=== PATIENT | female | born 1935 | race Caucasian/White ===

== ENCOUNTER 2018-08-03 00:29 | Inpatient (IN) | payer MEDICARE ==
[~2018-08-03] VITALS: Ht 165.1 cm; Wt 68.0 kg
[2018-08-03] VITALS (14 sets, daily range): BP systolic 114–159; BP diastolic 46–78
--- NOTE | 2018-08-03 00:45 | NUR ---
ED Nurse Note: RECIEVED PT BIBA FROM HOME WITH C/O UN-WITNESSED SYNCOPAL EPISODE WHILE USING BATHROOM, PT HAS HAD BLOODY DIARRHEA FOR PAST 2 DAYS, PT ALSO C/O FEELING WEAK, PT SKIN IS VERY PALE AND WHITE COLORED, ALSO MUCOUS MEMBRANES AND TONGUE VERY PLE COLORED, PT SKIN IS COOL AND PT IS TREMBLING WITH CHILLS, PT IMMEDIATELY PLACED ON CARDIAC MONITORING, HAS PATENT IV LINE, WILL RESUME CARE ORDERED AND CLOSELY MONITOR.
[2018-08-03 01:11] LABS: MEAN CORPUSCULAR VOLUME 86 FL (80-99); PLATELET COUNT 211 K/UL (150-450); RED BLOOD COUNT 2.44 M/UL (4.20-5.40); RED CELL DISTRIBUTION WIDTH 14.2 % (11.6-14.8); WHITE BLOOD COUNT 9.3 K/UL (4.8-10.8)
[2018-08-03 01:17] LABS: HEMOGLOBIN 6.9 G/DL (12.0-16.0)
[2018-08-03 01:22] LABS: ANION GAP 8 mmol/L (5-15); BLOOD UREA NITROGEN 30 mg/dL (7-18); CARBON DIOXIDE 22 MMOL/L (21-32); CHLORIDE 108 MMOL/L (98-107); CREATININE 1.3 MG/DL (0.55-1.30); POTASSIUM 4.5 MMOL/L (3.5-5.1); SODIUM 138 MMOL/L (136-145)
[2018-08-03 01:27] LABS: ALANINE AMINOTRANSFERASE 16 U/L (12-78); ALBUMIN 2.7 G/DL (3.4-5.0); ALBUMIN/GLOBULIN RATIO 1.1 (1.0-2.7); ALKALINE PHOSPHATASE 28 U/L (46-116); ASPARTATE AMINO TRANSFERASE 23 U/L (15-37); BILIRUBIN,TOTAL 0.2 MG/DL (0.2-1.0)
[2018-08-03 01:39] LABS: INR 1.1 (0.9-1.1)
--- NOTE | 2018-08-03 02:00 | NUR ---
ED Nurse Note: PT CONTINUES TO REST IN BED, AWAKE AND ALERT, PT CHANGED FOR INCONTINENCE, VERY SMALL AMOUNT OF BLOOD NOTED FROM RECTUM, PT DENIES PAIN, V/S STABLE, IV SITE PATENT, PT IS BEING ADMITTED AND WILL HAVE BLOOD TRANSFUSION, PT IS AWARE, ALSO FAMILY AT BEDSIDE, CONSENT SIGNED, WILL CONTINUE TO MONITOR AND PREPARE FOR ADMISSION.
--- NOTE | 2018-08-03 03:05 | NUR ---
ED Nurse Note: PT STARTED BLOOD TRNSFUSION OF PRBC'S ORDERED,NEW IV LINE PLACED ON RIGHT C, STATES OK TO USE EXTREMITY, STAYED AT PT BEDSIDE FIRST 15 MINUTES, PT TOLERTED WELL, NO S/S OF ADVERSE REACTION NOTED, PT CONTINUES TO DENY PAIN, V/S STABLE, WILL CONTINUE TO CLOSELY MONITOR AND PREPARE FOR ADMISSION TO FLOOR BED.
--- NOTE | 2018-08-03 03:45 | NUR ---
ED Nurse Note: PT BEING ADMITTED TO FLOOR UNIT, PT IS IN BED AWAKE, ALERT AND ORIENTED X 4, PT DENIES PAIN, BLOOD TRANSFUSION INFUSING ORDERED, SITE OK AND NO S/S F ADVERSE REACTION NOTED, REPORT CALLED TO FLOOR NURSE MONIQUE ROME, PT BEING TAKEN TO UNIT VIA GULAZARA AND ACLS PROTOCOLS WITH ER-TECH, PT BELONGINGS WITH HER AND LIST COMPLETED, NAD NOTED DURING PT TRANSPORT TO UNIT.
--- NOTE | 2018-08-03 04:09 | Emergency Room Report ---
History of Present Illness General Chief Complaint: Syncope Source: Patient Present Illness HPI 83-year-old female presents ED for evaluation. Brought in by EMS from home. Had syncopal episode tonight. Patient was on the toilet and there was large amount of blood witnessed by family. Per EMS patient is hypotensive. Patient feels weak. Denies any prior episodes of rectal bleeding. Is not taking any blood thinners. Denies abdominal pain. Denies nausea or vomiting. No other aggravating relieving factors. Denies any other associated symptoms Allergies: Coded Allergies: No Known Allergies (Unverified , 08/03/18) Patient History Past Medical History: DM, HTN, other - breast cancer Past Surgical History: none Pertinent Family History: none Social History: Denies: smoking, alcohol use, drug use Now: No Immunizations: UTD Reviewed Nursing Documentation: PMH: Agreed; PSxH: Agreed Nursing Documentation-PMH Hx Hypertension: Yes Hx Diabetes: Yes Hx Gastrointestinal Problems: Yes - R Breast cancer Review of Systems All Other Systems: negative except mentioned in HPI Physical Exam Vital Signs Date Time Temp Pulse Resp B/P (MAP) Pulse Ox O2 Delivery O2 Flow Rate FiO2 08/03/18 00:30 98.1 57 16 79/31 (47) 95 Room Air Sp02 EP Interpretation: reviewed, normal General Appearance: no apparent distress, alert, GCS 15, non-toxic Head: normocephalic, atraumatic Eyes: bilateral eye normal inspection, bilateral eye PERRL ENT: hearing grossly normal, normal pharynx, no angioedema, normal voice Neck: full range of motion, supple/symm/no masses Respiratory: chest non-tender, lungs clear, normal breath sounds, speaking full sentences Cardiovascular #1: regular rate, rhythm, no edema Cardiovascular #2: 2+ carotid (R), 2+ carotid (L), 2+ radial (R), 2+ radial (L) , 2+ dorsalis pedis (R), 2+ dorsalis pedis (L) Gastrointestinal: normal bowel sounds, non tender, soft, non-distended, no guarding, no rebound Rectal: heme positive stool Genitourinary: normal inspection, no CVA tenderness Musculoskeletal: back normal, gait/station normal, normal range of motion, non- tender Neurologic: alert, oriented x3, responsive, motor strength/tone normal, sensory intact, speech normal Psychiatric: judgement/insight normal, memory normal, mood/affect normal, no suicidal/homicidal ideation Reflexes: 3+ bicep (R), 3+ bicep (L), 3+ tricep (R), 3+ tricep (L), 3+ knee (R) , 3+ knee (L) Skin: normal color, no rash, warm/dry, well hydrated Lymphatic: no adenopathy Procedures Critical Care Time Critical Care Time i. I feel this is a highly complex case requiring extensive working including EKG/Rhythm strip, Xray/CT/US, Blood/urine lab work, repeat exams while in ED, and administration of strong opiates/narcotics for pain control, admission to hospital or close patient follow up. Total time: 30 min bedside evaluation and treatment excludes procedures (EKG). Reason for critical care: hypotension, anemia, GI bleed Possible complications: hypotension, hypertension, AL, shock, arrhythmias, metabolic acidosis, end organ damage, respiratory failure. Interventions: labs, IVFS, EKG. PRBC transfusion. Course: presenting with hypotension, lower GI bleed. Labs show hemoglobin 6.9. Troponin is negative. Coags okay. BP improved with IV fluids. Blood transfusion started Consultations: nursing staff, EMS, family Performed by: Dr Johnson Tolerated well condition = serious j. because of unstable vital signs this patient had a condition that could potentially threaten life or limb. I feel this is a critical patient who required my full attention while patient was considered critical. Total Critical Care Time excluding procedures was greater than 30 minutes Medical Decision Making Diagnostic Impression: Primary Impression: Syncope Qualified Codes: R55 - Syncope and collapse Additional Impressions: LGI bleed Anemia Qualified Codes: D64.9 - Anemia, unspecified ER Course Hospital Course 83-year-old F presents to ED with rectal bleeding. hypotension Differential diagnoses include: UGIB, LGIB, hemorrhoids Clinical course Patient placed on stretcher. 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 After initial history and physical I ordered labs, IV fluids, UA Labs - no leukocytosis, Hb/Hct 6.9/21. BUN elevated. trop negative. EKG - NSR, no acute ischemic changes interpreted by me Improved with IV fluids. Blood transfusion started Case discussed with Dr. Shahid and he agreed to accept the patient to his service for further care and support I feel this is a highly complex case requiring extensive working including EKG/ Rhythm strip, Xray/CT/US, Blood/urine lab work, repeat exams while in ED, and administration of strong opiates/narcotics for pain control, admission to hospital or close patient follow up. Diagnosis - LGIB, syncope, anemia Patient admitted to telemetry in serious condition Labs Test 08/03/18 00:45 White Blood Count 9.3 K/UL (4.8-10.8) Red Blood Count 2.44 M/UL (4.20-5.40) Hemoglobin 6.9 G/DL (12.0-16.0) Hematocrit 21.0 % (37.0-47.0) Mean Corpuscular Volume 86 FL (80-99) Mean Corpuscular Hemoglobin 28.4 PG (27.0-31.0) Mean Corpuscular Hemoglobin Concent 33.0 G/DL (32.0-36.0) Red Cell Distribution Width 14.2 % (11.6-14.8) Platelet Count 211 K/UL (150-450) Mean Platelet Volume 5.6 FL (6.5-10.1) Neutrophils (%) (Auto) % (45.0-75.0) Lymphocytes (%) (Auto) % (20.0-45.0) Monocytes (%) (Auto) % (1.0-10.0) Eosinophils (%) (Auto) % (0.0-3.0) Basophils (%) (Auto) % (0.0-2.0) Prothrombin Time 11.3 SEC (9.30-11.50) Prothromb Time International Ratio 1.1 (0.9-1.1) Activated Partial Thromboplast Time 22 SEC (23-33) Sodium Level 138 MMOL/L (136-145) Potassium Level 4.5 MMOL/L (3.5-5.1) Chloride Level 108 MMOL/L (98-107) Carbon Dioxide Level 22 MMOL/L (21-32) Anion Gap 8 mmol/L (5-15) Blood Urea Nitrogen 30 mg/dL (7-18) Creatinine 1.3 MG/DL (0.55-1.30) Estimat Glomerular Filtration Rate mL/min (>60) Glucose Level 237 MG/DL (74-106) Calcium Level 8.0 MG/DL (8.5-10.1) Total Bilirubin 0.2 MG/DL (0.2-1.0) Aspartate Amino Transf (AST/SGOT) 23 U/L (15-37) Alanine Aminotransferase (ALT/SGPT) 16 U/L (12-78) Alkaline Phosphatase 28 U/L (46-116) Troponin I 0.026 ng/mL (0.000-0.056) Total Protein 5.2 G/DL (6.4-8.2) Albumin 2.7 G/DL (3.4-5.0) Globulin 2.5 g/dL Albumin/Globulin Ratio 1.1 (1.0-2.7) Lipase 175 U/L (73-393) EKG Diagnostic Results Rate: normal Rhythm: NSR ST Segments: no acute changes ASA given to the pt in ED: No Rhythm Strip Diag. Results EP Interpretation: yes Rhythm: NSR, no PVC's, no ectopy Last Vital Signs Date Time Temp Pulse Resp B/P (MAP) Pulse Ox O2 Delivery O2 Flow Rate FiO2 08/03/18 01:15 98.1 69 16 115/78 98 Room Air Status: improved Disposition: ADMITTED INPATIENT Condition: Serious Referrals: NON PHYSICIAN (PCP) Gaudencio Johnson MD Aug 03, 2018 04:09
--- NOTE | 2018-08-03 04:30 | NUR ---
BEDSIDE REPORT RECEIVED FROM MONIQUE STOVALL. TRIM SAWYER SHOWING NSDR. X4 ABLE TO MAKE NEEDS KNOWN. SKIN IS CLEAN DRY AND INTACT. CURRENTLY RECEIVING 1 OF 2 UNITS OF PRBCS. LH 22 AND RAC 18, ASYMPTOMATIC. BED IS LOCKED IN LOWEST POSITION, SR X3, CALL PINEDA X3, BED ALARM ON. WILL CONTINUE TO MONITOR AND FOLLOW W/ PLAN OF CARE.
--- NOTE | 2018-08-03 07:05 | NUR ---
NURSE NOTES: RECEIVED REPORT FROM MONIQUE ROME. PATIENT IS ON ROOM AIR BREATHING EVEN AND UNLABORED. 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 PATIENT IS AAO X4 AND ABLE TO MAKE NEEDS KNOWN. SKIN IS CLEAN DRY AND INTACT. CURRENTLY RECEIVING 2 OUT OFF 2 UNITS OF PRBCS. LH 22 AND RAC 18, ASYMPTOMATIC. BED IS LOCKED IN LOWEST POSITION, SR X3, CALL PINEDA X3, BED ALARM ON. WILL CONTINUE TO MONITOR AND FOLLOW W/ PLAN OF CARE.
--- NOTE | 2018-08-03 07:11 | NUR ---
HAND-OFF: Report given to MONIQUE MANNING.
--- NOTE | 2018-08-03 08:34 | NUR ---
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 SYNCOPE VS: BP 79/31, P 57, T 98.0, RR 16, SpO2 95 RBC 2.44, H&H 6.9/21.0, BUN 30 IS:NS x1L IV ADMITTED TO ARU DCP: RETURN HOME
--- NOTE | 2018-08-03 08:40 | NUR ---
NURSE NOTES: Second blood transfusion is completed. Patient denies pain and is no distress.
[2018-08-03] MEDS ORDERED: Morphine Sulfate 2mg/ml Inj(IV/IM USE ONLY) IVP PRN (09:15)
[2018-08-03] MEDS ORDERED: Nitroglycerin Subl 0.4mg tab SL PRN (09:15)
[2018-08-03] MEDS ORDERED: Miralax 17gm pkt ORAL PRN (09:15)
[2018-08-03] MEDS: D5NS 1,000 ML IV SCH ×2 (10:02→19:05)
[2018-08-03] MEDS ORDERED: Fleet's Enema 133ml RECTAL SCH (10:06)
--- NOTE | 2018-08-03 11:34 | Consultation ---
History of Present Illness General Date patient seen: Aug 03, 2018 Chief Complaint: Syncope Present Illness HPI 83-year-old female with hx of early Dementia, breast cancer 5 years ago, presented ED early this morning for evaluation of syncopal episode. Patient was on the toilet and there was large amount of blood witnessed by family. Per EMS patient was hypotensive. Patient feels weak. Denies any prior episodes of rectal bleeding. Is not taking any blood thinners. Denies abdominal pain. Denies nausea or vomiting. No other aggravating relieving factors. Denies any other associated symptoms. Her hemoglobin was 6. She is admitted to [facility] for further management. She is awake and comfortable now. Pt's son at the bed site stating that she has been forgetful in the last few years. Allergies: Coded Allergies: No Known Allergies (Unverified , 08/03/18) Patient History Healthcare decision maker SELF Resuscitation status Full Code Advanced Directive on File No Past Medical/Surgical History Past Medical/Surgical History: (1) Breast cancer Review of Systems All Other Systems: negative except mentioned in HPI Physical Exam General Appearance: WD/WN Lines, tubes and drains: peripheral HEENT: normocephalic, anicteric Neck: non-tender, normal alignment Respiratory/Chest: chest wall non-tender, lungs clear, normal breath sounds Breasts: no masses Cardiovascular/Chest: normal peripheral pulses Abdomen: normal bowel sounds Genitourinary/Rectal: normal genital exam Extremities: normal range of motion Last 24 Hour Vital Signs Date Time Temp Pulse Resp B/P (MAP) Pulse Ox O2 Delivery O2 Flow Rate FiO2 08/03/18 09:58 65 131/55 08/03/18 08:40 97.7 64 20 143/60 (87) 98 08/03/18 08:00 98.3 65 18 131/55 (80) 98 08/03/18 08:00 Room Air 08/03/18 05:49 98.4 14 128/56 99 Room Air 08/03/18 04:59 Room Air 08/03/18 04:37 61 08/03/18 04:00 98.4 67 14 128/56 99 Room Air 08/03/18 04:00 97.8 66 20 138/77 (97) 97 08/03/18 03:00 98.4 67 16 114/58 98 Room Air 08/03/18 01:15 98.1 69 16 115/78 98 Room Air 08/03/18 00:45 98.1 70 16 114/46 97 Room Air 08/03/18 00:30 98.1 57 16 79/31 (47) 95 Room Air Laboratory Tests Test 08/03/18 00:45 White Blood Count 9.3 K/UL (4.8-10.8) Red Blood Count 2.44 M/UL (4.20-5.40) L Hemoglobin 6.9 G/DL (12.0-16.0) *L Hematocrit 21.0 % (37.0-47.0) L Mean Corpuscular Volume 86 FL (80-99) Mean Corpuscular Hemoglobin 28.4 PG (27.0-31.0) Mean Corpuscular Hemoglobin Concent 33.0 G/DL (32.0-36.0) Red Cell Distribution Width 14.2 % (11.6-14.8) Platelet Count 211 K/UL (150-450) Mean Platelet Volume 5.6 FL (6.5-10.1) L Neutrophils (%) (Auto) % (45.0-75.0) Lymphocytes (%) (Auto) % (20.0-45.0) Monocytes (%) (Auto) % (1.0-10.0) Eosinophils (%) (Auto) % (0.0-3.0) Basophils (%) (Auto) % (0.0-2.0) Prothrombin Time 11.3 SEC (9.30-11.50) Prothromb Time International Ratio 1.1 (0.9-1.1) Activated Partial Thromboplast Time 22 SEC (23-33) L Sodium Level 138 MMOL/L (136-145) Potassium Level 4.5 MMOL/L (3.5-5.1) Chloride Level 108 MMOL/L (98-107) H Carbon Dioxide Level 22 MMOL/L (21-32) Anion Gap 8 mmol/L (5-15) Blood Urea Nitrogen 30 mg/dL (7-18) H Creatinine 1.3 MG/DL (0.55-1.30) Estimat Glomerular Filtration Rate mL/min (>60) Glucose Level 237 MG/DL (74-106) H Calcium Level 8.0 MG/DL (8.5-10.1) L Total Bilirubin 0.2 MG/DL (0.2-1.0) Aspartate Amino Transf (AST/SGOT) 23 U/L (15-37) Alanine Aminotransferase (ALT/SGPT) 16 U/L (12-78) Alkaline Phosphatase 28 U/L (46-116) L Troponin I 0.026 ng/mL (0.000-0.056) Total Protein 5.2 G/DL (6.4-8.2) L Albumin 2.7 G/DL (3.4-5.0) L Globulin 2.5 g/dL Albumin/Globulin Ratio 1.1 (1.0-2.7) Lipase 175 U/L (73-393) Height (Feet): 5 Height (Inches): 5.00 Weight (Pounds): 150 Medications Current Medications Medications (Trade) Dose Ordered Sig/Cynthia Route PRN Reason Start Time Stop Time Status Last Admin Dose Admin Acetaminophen (Tylenol) 650 mg Q4H PRN ORAL fever 08/03/18 09:15 09/02/18 09:14 Amlodipine Besylate (Norvasc) 5 mg DAILY ORAL 08/03/18 09:00 09/02/18 08:59 08/03/18 09:58 Dextrose (Dextrose 50%) 25 ml Q30M PRN IV Hypoglycemia 08/03/18 04:45 09/02/18 04:44 Dextrose (Dextrose 50%) 50 ml Q30M PRN IV Hypoglycemia 08/03/18 04:45 09/02/18 04:44 Dextrose/Sodium Chloride 1,000 ml @ 100 mls/hr Q10H IV 08/03/18 09:09 09/02/18 09:08 08/03/18 10:02 Diphenhydramine HCl (Benadryl) 25 mg Q6H PRN ORAL Itching/Pruritis 08/03/18 09:15 09/02/18 09:14 Morphine Sulfate (Morphine Sulfate) 2 mg Q4H PRN IVP severe Pain (Pain Scale 7-10) 08/03/18 09:15 08/10/18 09:14 Nitroglycerin (Ntg) 0.4 mg Q5M X 3 DOSES PRN SL Prn Chest Pain 08/03/18 09:15 09/02/18 09:14 Ondansetron HCl (Zofran) 4 mg Q6H PRN IVP Nausea & Vomiting 08/03/18 09:15 09/02/18 09:14 Polyethylene Glycol (Miralax) 17 gm HSPRN PRN ORAL Constipation 08/03/18 09:15 09/02/18 09:14 Sodium Phosphate (Fleet's Sodium Phosl Enema) 133 ml ONCE RECTAL 08/03/18 10:06 08/03/18 12:00 08/03/18 11:08 Temazepam (Restoril) 15 mg HSPRN PRN ORAL Insomnia 08/03/18 09:15 08/10/18 09:14 Assessment/Plan Problem List: (1) Symptomatic anemia ICD Codes: D64.9 - Anemia, unspecified SNOMED: 599484446 (2) Hemorrhagic shock ICD Codes: R57.8 - Other shock SNOMED: 469407 (3) Breast cancer ICD Codes: C50.919 - Malignant neoplasm of unspecified site of unspecified female breast SNOMED: 564555334 (4) Acute encephalopathy ICD Codes: G93.40 - Encephalopathy, unspecified SNOMED: 03779031, 779060256 (5) LGI bleed ICD Codes: K92.2 - Gastrointestinal hemorrhage, unspecified SNOMED: 65584106 Assessment/Plan: NPO iv fluids check h/h prbc prn, she got 2 units of prbc so far dvt prophylaxis echocardiogram, since she passed out symptomatic treatment check labs in am d/w son at the bed site. Nitza Yarbrough MD Aug 03, 2018 11:34
--- NOTE | 2018-08-03 12:29 | History & Physical ---
History and Physical History & Physicial Jax Shahid MD Aug 03, 2018 12:29
[2018-08-03] MEDS ORDERED: Lidocaine 1% MPF 10mg/ml 5ml ONE (13:00)
[2018-08-03] MEDS ORDERED: Propofol 200mg/20ml IV ONE (13:00)
[2018-08-03] MEDS ORDERED: Atropine Sulfate 0.4mg/ml inj ONE (13:00)
--- NOTE | 2018-08-03 13:00 | NUR ---
NURSE NOTES: Left for GI lab at 13:00.
--- NOTE | 2018-08-03 13:10 | Pre-Procedure Note/Attestation ---
Pre-Procedure Note/Attestation Complete Prior to Procedure Planned Procedure: not applicable Procedure Narrative: esophagogastroduodenoscopy and colonoscopy Indications for Procedure Pre-Operative Diagnosis: gib Attestation I attest that I discussed the nature of the procedure; its benefits; risks and complications; and alternatives (and the risks and benefits of such alternatives ), prior to the procedure, with the patient (or the patient's legal technical account representative). I attest that, if there was a reasonable possibility of needing a blood transfusion, the patient (or the patient's legal technical account representative) was given the [facility] standardized written summary, pursuant to the Eric Phong Blood Safety Act ([place] Health and Safety Code # 1645, as amended). I attest that I re-evaluated the patient just prior to the surgery and that there has been no change in the patient's H&P, except as documented below: Wilian Edge MD Aug 03, 2018 13:10
[2018-08-03] MEDS ORDERED: NS 500ML IVPB ONE (13:15)
--- NOTE | 2018-08-03 13:41 | Anethesia Preoperative Eval ---
Anesthesia Pre-op PMH/ROS General Date of Evaluation: Aug 03, 2018 Time of Evaluation: 13:16 Anesthesiologist: kevin ASA Score: ASA 4 Mallampati Score Class I : Soft palate, uvula, fauces, pillars visible Class II: Soft palate, uvula, fauces visible Class III: Soft palate, base of uvula visible Class IV: Only hard plate visible Mallampati Classification: Class II Surgeon: nat Diagnosis: gi bleed, abdominal pain Surgical Procedure: egd/colonoscopy Anesthesia History: none Social History: smoking - nonsmoker Family History: no anesthesia problems Allergies: Coded Allergies: No Known Allergies (Unverified , 08/03/18) Medications: see eMAR Patient NPO?: Yes Past Medical History Cardiovascular: Reports: HTN, other - syncope Endocrine: Reports: DM - gi bleed Hematology/Immune: Reports: anemia, other - breast cancer Anesthesia Pre-op Phys. Exam Physician Exam Last Vital Signs Date Time Temp Pulse Resp B/P (MAP) Pulse Ox O2 Delivery O2 Flow Rate FiO2 08/03/18 09:58 65 131/55 08/03/18 08:40 97.7 20 98 08/03/18 08:00 Room Air Constitutional: NAD Neurologic: CN 2-12 intact Cardiovascular: RRR Respiratory: CTA Gastrointestinal: S/NT/ND Airway Exam Mallampati Score: Class II MO: limited Neck: flexible TMD: 2fb ROM: limited Anesthesia Pre-op A/P Labs Hematology Test 08/03/18 00:45 White Blood Count 9.3 K/UL (4.8-10.8) Red Blood Count 2.44 M/UL (4.20-5.40) L Hemoglobin 6.9 G/DL (12.0-16.0) *L Hematocrit 21.0 % (37.0-47.0) L Mean Corpuscular Volume 86 FL (80-99) Mean Corpuscular Hemoglobin 28.4 PG (27.0-31.0) Mean Corpuscular Hemoglobin Concent 33.0 G/DL (32.0-36.0) Red Cell Distribution Width 14.2 % (11.6-14.8) Platelet Count 211 K/UL (150-450) Mean Platelet Volume 5.6 FL (6.5-10.1) L Neutrophils (%) (Auto) % (45.0-75.0) Lymphocytes (%) (Auto) % (20.0-45.0) Monocytes (%) (Auto) % (1.0-10.0) Eosinophils (%) (Auto) % (0.0-3.0) Basophils (%) (Auto) % (0.0-2.0) Coagulation Test 08/03/18 00:45 Prothrombin Time 11.3 SEC (9.30-11.50) Prothromb Time International Ratio 1.1 (0.9-1.1) Activated Partial Thromboplast Time 22 SEC (23-33) L Chemistry Test 08/03/18 00:45 Sodium Level 138 MMOL/L (136-145) Potassium Level 4.5 MMOL/L (3.5-5.1) Chloride Level 108 MMOL/L (98-107) H Carbon Dioxide Level 22 MMOL/L (21-32) Anion Gap 8 mmol/L (5-15) Blood Urea Nitrogen 30 mg/dL (7-18) H Creatinine 1.3 MG/DL (0.55-1.30) Estimat Glomerular Filtration Rate mL/min (>60) Glucose Level 237 MG/DL (74-106) H Calcium Level 8.0 MG/DL (8.5-10.1) L Total Bilirubin 0.2 MG/DL (0.2-1.0) Aspartate Amino Transf (AST/SGOT) 23 U/L (15-37) Alanine Aminotransferase (ALT/SGPT) 16 U/L (12-78) Alkaline Phosphatase 28 U/L (46-116) L Troponin I 0.026 ng/mL (0.000-0.056) Total Protein 5.2 G/DL (6.4-8.2) L Albumin 2.7 G/DL (3.4-5.0) L Globulin 2.5 g/dL Albumin/Globulin Ratio 1.1 (1.0-2.7) Lipase 175 U/L (73-393) Risk Assessment & Plan Assessment: asa4 Plan: mac Status Change Before Surgery: No Pre-Antibiotics Drug: Marie Dupont MD Aug 03, 2018 13:41
--- NOTE | 2018-08-03 13:41 | Endoscopy Procedure Note ---
Endoscopy Procedure Note General Indication for Procedure: rectal bleed Procedures Performed: EGD, colonoscopy Operative Findings/Diagnosis: gastritis, hemorrhoids Specimen: yes Pt Tolerated Procedure Well: Yes Anesthesia Anesthesiologist: julio Anesthesia: MAC Inserted Devices Implant(s) used?: No GI Core Measures 50 yrs or older w/o bx or poly: Not Applicable 10yrs. F/U recommended: Not Applicable Wilian Edge MD Aug 03, 2018 13:41
[2018-08-03] MEDS ORDERED: Atropine Inj 1mg/10ml Syr IV PRN (13:45)
[2018-08-03] MEDS ORDERED: fentaNYL 100 mcg/2 mL IV PRN (13:45)
[2018-08-03] MEDS ORDERED: DiphenhydrAMINE 50mg/ml Inj IVP PRN (13:45)
[2018-08-03] MEDS ORDERED: Midazolam 2mg/2ml Inj IVP PRN (13:45)
[2018-08-03 16:24] LABS: BASOPHILS % (AUTO) 1.2 % (0.0-2.0); EOSINOPHILS % (AUTO) 2.9 % (0.0-3.0); HEMATOCRIT 30.3 % (37.0-47.0); HEMOGLOBIN 10.4 G/DL (12.0-16.0); LYMPHOCYTES % (AUTO) 24.3 % (20.0-45.0); MEAN CORPUSCULAR VOLUME 83 FL (80-99); MONOCYTES % (AUTO) 5.2 % (1.0-10.0); NEUTROPHILS % (AUTO) 66.5 % (45.0-75.0); PLATELET COUNT 206 K/UL (150-450); RED BLOOD COUNT 3.65 M/UL (4.20-5.40); RED CELL DISTRIBUTION WIDTH 13.3 % (11.6-14.8); WHITE BLOOD COUNT 9.1 K/UL (4.8-10.8)
[2018-08-03] MEDS: NovoLOG Insulin Flexpen SUBQ SCH ×2 (16:30→20:28)
--- NOTE | 2018-08-03 19:10 | NUR ---
HAND-OFF: Report given to MONIQUE Robertson. patient is AAO x 4. Patient denies pain and no respiratory distress noted.
--- NOTE | 2018-08-03 19:15 | NUR ---
NURSE NOTES: Report received from Kenroy Bernardo RN. Patient seen in bed in semi luevano position. Alert,verbally responsive, able to make needs known. Denies any pain at this time. Currently on IVF of D5NS at 100cc/HR. IV site noted to Left hand 22g and right AC18g, both is intact. Patient is on room air with no respiratory distress is noted, sp02 is 98%. Bed is in low position. Call light is within easy reach while in bed. Will continue to monitor.
--- NOTE | 2018-08-03 20:15 | Procedure Note ---
DATE OF PROCEDURE: 08/03/2018 SURGEON: Wilian Edge M.D. PROCEDURE: Colonoscopy . ANESTHESIA: Per Dr. Mason. INSTRUMENT: Olympus adult flexible colonoscope. INDICATION: Rectal bleeding. REASON FOR PROCEDURE: The procedure, risks, benefits, and possible consequences, including hemorrhage, aspiration, perforation and infection, and alternative treatments, were explained to the patient/legal guardian by Dr. Wilian Edge and the patient/legal guardian understood and accepted these risks. PROCEDURE IN DETAIL: After informed consent was obtained and the patient was adequately sedated, first rectal exam was performed, which was normal. Then, the scope was advanced from the rectum into the mid transverse colon, poor prep. We could not advance the scope beyond this point. There was no evidence of any active bleeding at this time. No blood seen in the rectum. There was evidence of diverticulosis in the left colon most possibly source of lower gastrointestinal bleeding. Retroflexion of rectum showed evidence of internal hemorrhoids. SUMMARY OF FINDINGS: 1. Incomplete colonoscopy examination given poor prep. 2. Diverticulosis. 3. Internal hemorrhoids. RECOMMENDATIONS: At this time, the possible source of bleeding should be diverticulosis, but not actively bleeding. At this time, we recommend the patient to be monitored. If the patient has evidence of recurrent lower gastrointestinal bleeding, we will recommend full colonoscopy with better prep on Monday. I want to thank Dr. Jax Shahid for this kind referral. Wilian Edge M.D. DR: Jessica JOB#: [id number] CC: Jax Shahid M.D.; Fax#: [phone]
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
--- NOTE | 2018-08-03 21:44 | Immediate Post-Op Evaluation ---
Immediate Post-Op Evalulation Immediate Post-Op Evalulation Procedure: egd/colonoscopy/bx Date of Evaluation: Aug 03, 2018 Time of Evaluation: 14:02 IV Fluids: 375ml 0.9ns Blood Products: none Estimated Blood Loss: negligible Blood Pressure Systolic: 126 Blood Pressure Diastolic: 67 Pulse Rate: 67 Respiratory Rate: 18 O2 Sat by Pulse Oximetry: 99 Temperature (Fahrenheit): 97.2 Pain Score (1-10): 0 Nausea: No Vomiting: No Complications none Patient Status: awake, reacts, patent Hydration Status: adequate Drug: Marie Dupont MD Aug 03, 2018 21:44
--- NOTE | 2018-08-03 21:46 | 48 Hour Post Anesthesia Eval ---
Post Anesthesia Evaluation Procedure: egd/colonoscopy/bx Date of Evaluation: Aug 03, 2018 Time of Evaluation: 14:04 Blood Pressure Systolic: 145 0: 77 Pulse Rate: 64 Respiratory Rate: 18 Temperature (Fahrenheit): 97.2 O2 Sat by Pulse Oximetry: 99 Airway: patent Nausea: No Vomiting: No Pain Intensity: 0 Hydration Status: adequate Cardiopulmonary Status: stable Mental Status/LOC: patient returned to baseline Post-Anesthesia Complications: none Follow-up care needed: N/A Marie Christianson MD Aug 03, 2018 21:46
[2018-08-04] VITALS: BP 119/86
--- NOTE | 2018-08-04 00:15 | Procedure Note ---
DATE OF PROCEDURE: 08/03/2018 SURGEON: Wilian Edge M.D. PROCEDURE: endoscopy with biopsy. ANESTHESIA: Per Dr. Mason. INSTRUMENT: Olympus flexible upper endoscope. INDICATION: Gastrointestinal bleeding. REASON FOR PROCEDURE: The procedure, risks, benefits, and possible consequences, including hemorrhage, aspiration, perforation and infection, and alternative treatments, were explained to the patient/legal guardian by Dr. Wilian Edge and the patient/legal guardian understood and accepted these risks. DESCRIPTION OF PROCEDURE: After informed consent was obtained and the patient was adequately sedated, Olympus upper endoscope was advanced from mouth into the second portion of the duodenum and retroflexion was performed in the stomach. The patient has mild diffuse atrophic gastritis and few gastric erosions mainly in the body of the stomach. There was evidence of 1 polyp in the body of the stomach, which was removed with the cold biopsy forceps technique. The polyp was small. The patient has evidence of diffuse gastritis. Random biopsy from antrum was obtained to rule out H. pylori infection. SUMMARY OF FINDINGS: 1. Gastric polyp, status post biopsy. 2. Atrophic gastritis. 3. Multiple gastric erosions. RECOMMENDATIONS: Follow up biopsy results and treat accordingly. We are going to proceed with attempt to do examination of the lower gastrointestinal given rectal bleeding. Wilian Edge M.D. DR: TAWNYA JOB#: [id number] CC:
--- NOTE | 2018-08-04 03:12 | NUR ---
HAND-OFF: Report given to Maggie Stokes RN.
--- NOTE | 2018-08-04 03:18 | NUR ---
NURSE NOTES: Received report from Yecenia RN, pt. in bed awake, A/O x's4- able to make needs known, no signs or symptoms of acute cardiac or respiratory distress noted, bed in lowest position and call light within easy reach, bed alarm on, side rails up x's3 and safety brakes engaged, pt. appears to be resting comfortably, and appears to be sating well on room air- no distress noted, pt. appears to be clean and dry, Lt. hand 22G running D5NS at 100cc/hr- IV intact and patent and Rt. AC 18G IV intact and patent, safety measures continued, will continue with plan of care.
[2018-08-04 04:00] VITALS: BP 130/60
[2018-08-04] MEDS: D5NS 1,000 ML IV SCH (04:39)
[2018-08-04] MEDS: NovoLOG Insulin Flexpen SUBQ SCH ×4 (05:42→21:00)
--- NOTE | 2018-08-04 05:42 | Pulmonology Progress Note ---
Assessment/Plan Problems: (1) Symptomatic anemia (2) Hemorrhagic shock (3) Breast cancer (4) Acute encephalopathy (5) LGI bleed Assessment/Plan EGD and colonoscopy done, results noted Hem is up to 10 symptomatic treatment check h/h repeat colonoscopy if h/h drops advance diet as per GI Subjective Interval Events: no new complains Allergies: Coded Allergies: No Known Allergies (Unverified , 08/03/18) Objective Last 24 Hour Vital Signs Date Time Temp Pulse Resp B/P (MAP) Pulse Ox O2 Delivery O2 Flow Rate FiO2 08/04/18 04:00 Room Air 08/04/18 04:00 55 08/04/18 04:00 97.6 70 20 130/60 (83) 96 08/04/18 00:00 Room Air 08/04/18 00:00 Room Air 08/04/18 00:00 98.4 60 20 119/86 (97) 96 08/03/18 23:41 60 08/03/18 21:46 64 18 99 08/03/18 21:44 67 18 99 08/03/18 20:00 Room Air 08/03/18 20:00 98.2 76 18 136/70 (92) 96 08/03/18 19:31 55 08/03/18 16:00 Room Air 08/03/18 16:00 62 08/03/18 16:00 97.7 63 20 147/60 (89) 97 08/03/18 14:20 61 18 159/73 100 Nasal Cannula 3 08/03/18 14:10 61 21 155/75 100 Nasal Cannula 3 08/03/18 14:00 64 18 145/77 100 Nasal Cannula 3 08/03/18 13:55 65 20 127/67 99 Nasal Cannula 3 08/03/18 13:50 97.2 67 18 126/67 99 Nasal Cannula 3 08/03/18 12:00 Room Air 08/03/18 11:43 75 08/03/18 11:30 97.5 58 20 150/58 (88) 97 08/03/18 09:58 65 131/55 08/03/18 08:40 97.7 64 20 143/60 (87) 98 08/03/18 08:00 98.3 65 18 131/55 (80) 98 08/03/18 08:00 Room Air 6/7/19 07:33 61 08/03/18 05:49 98.4 14 128/56 99 Room Air Intake and Output 08/03/18 08/04/18 18:59 06:59 Intake Total 425 ml 891.6666 ml Balance 425 ml 891.6666 ml Intake IV Total 425 ml 891.6666 ml # Voids 1 # Bowel Movements 3 General Appearance: WD/WN HEENT: normocephalic, atraumatic Respiratory/Chest: chest wall non-tender, lungs clear Breasts: no masses Cardiovascular: normal peripheral pulses, normal rate Abdomen: normal bowel sounds, no organomegaly Extremities: no cyanosis Skin: no rash 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, normal mood/affect Laboratory Tests 08/03/18 11:35: Urine Color [Pending], Urine Appearance [Pending], Urine pH [Pending], Urine Specific [place] [Pending], Urine Protein [Pending], Urine Glucose (UA) [Pending ], Urine Ketones [Pending], Urine Blood [Pending], Urine Nitrite [Pending], Urine Bilirubin [Pending], Urine Urobilinogen [Pending], Urine Leukocyte Esterase [Pending], Stool Occult Blood [Pending] 08/03/18 16:10: White Blood Count 9.1, Red Blood Count 3.65L, Hemoglobin 10.4#L, Hematocrit 30.3 #L, Mean Corpuscular Volume 83, Mean Corpuscular Hemoglobin 28.4, Mean Corpuscular Hemoglobin Concent 34.2, Red Cell Distribution Width 13.3, Platelet Count 206, Mean Platelet Volume 5.2L, Neutrophils (%) (Auto) 66.5, Lymphocytes ( %) (Auto) 24.3, Monocytes (%) (Auto) 5.2, Eosinophils (%) (Auto) 2.9, Basophils (%) (Auto) 1.2 Current Medications Medications (Trade) Dose Ordered Sig/Cynthia Route PRN Reason Start Time Stop Time Status Last Admin Dose Admin Acetaminophen (Tylenol) 650 mg Q4H PRN ORAL fever 08/03/18 09:15 09/02/18 09:14 Amlodipine Besylate (Norvasc) 5 mg DAILY ORAL 08/03/18 09:00 09/02/18 08:59 08/03/18 09:58 Dextrose (Dextrose 50%) 25 ml Q30M PRN IV Hypoglycemia 08/03/18 12:30 09/02/18 12:29 Dextrose (Dextrose 50%) 50 ml Q30M PRN IV Hypoglycemia 08/03/18 12:30 09/02/18 12:29 Dextrose/Sodium Chloride 1,000 ml @ 100 mls/hr Q10H IV 08/03/18 09:09 09/02/18 09:08 08/03/18 19:05 Diphenhydramine HCl (Benadryl) 25 mg Q6H PRN ORAL Itching/Pruritis 08/03/18 09:15 09/02/18 09:14 Insulin Aspart (NovoLOG) BEFORE MEALS AND HS SUBQ 08/03/18 16:30 09/02/18 16:29 Morphine Sulfate (Morphine Sulfate) 2 mg Q4H PRN IVP severe Pain (Pain Scale 7-10) 08/03/18 09:15 08/10/18 09:14 Nitroglycerin (Ntg) 0.4 mg Q5M X 3 DOSES PRN SL Prn Chest Pain 08/03/18 09:15 09/02/18 09:14 Ondansetron HCl (Zofran) 4 mg Q6H PRN IVP Nausea & Vomiting 08/03/18 09:15 09/02/18 09:14 Pantoprazole (Protonix) 40 mg EVERY 12 HOURS ORAL 08/03/18 12:30 09/02/18 12:29 08/03/18 20:28 Polyethylene Glycol (Miralax) 17 gm HSPRN PRN ORAL Constipation 08/03/18 09:15 09/02/18 09:14 Temazepam (Restoril) 15 mg HSPRN PRN ORAL Insomnia 08/03/18 09:15 08/10/18 09:14 Nitza Yarbrough MD Aug 04, 2018 05:42
[2018-08-04 05:43] LABS: BASOPHILS % (AUTO) 0.9 % (0.0-2.0); EOSINOPHILS % (AUTO) 4.5 % (0.0-3.0); HEMATOCRIT 24.4 % (37.0-47.0); HEMOGLOBIN 8.4 G/DL (12.0-16.0); LYMPHOCYTES % (AUTO) 36.6 % (20.0-45.0); MEAN CORPUSCULAR VOLUME 86 FL (80-99); MONOCYTES % (AUTO) 5.1 % (1.0-10.0); PLATELET COUNT 173 K/UL (150-450); RED BLOOD COUNT 2.85 M/UL (4.20-5.40); RED CELL DISTRIBUTION WIDTH 14.2 % (11.6-14.8); WHITE BLOOD COUNT 5.9 K/UL (4.8-10.8)
[2018-08-04 05:53] LABS: INR 1.1 (0.9-1.1)
[2018-08-04 06:04] LABS: ALANINE AMINOTRANSFERASE 16 U/L (12-78); ALBUMIN 2.5 G/DL (3.4-5.0); ALBUMIN/GLOBULIN RATIO 1.1 (1.0-2.7); ALKALINE PHOSPHATASE 23 U/L (46-116); AMYLASE 40 U/L (25-115); ANION GAP 7 mmol/L (5-15); ASPARTATE AMINO TRANSFERASE 20 U/L (15-37); BILIRUBIN,TOTAL 0.5 MG/DL (0.2-1.0); BLOOD UREA NITROGEN 11 mg/dL (7-18); CALCIUM 7.6 MG/DL (8.5-10.1); CARBON DIOXIDE 25 MMOL/L (21-32); CHLORIDE 116 MMOL/L (98-107); CREATININE 0.8 MG/DL (0.55-1.30); POTASSIUM 3.1 MMOL/L (3.5-5.1); SODIUM 148 MMOL/L (136-145)
--- NOTE | 2018-08-04 07:21 | NUR ---
HAND-OFF: Report given to Corrina AMAYA,pt. remains stable and no signs of distress noted. Nurse will f/u on abnormal labs regarding potassium trending down.
--- NOTE | 2018-08-04 07:25 | NUR ---
NURSE NOTES: Received report from Maryellen Stokes RN. Patient alert and oriented x 4, able to make needs known. On room air, respirations even and unlabored. Left hand 22g IV site infusing D5NS @ 100 cc/hr, no s/s of infiltration noted. Right AC 18g saline lock patent and asymptomatic. Bed locked in lowest position with side rails up x 3. All needs attended to. Call light within reach. Will continue to monitor.
[2018-08-04 08:00] VITALS: BP 129/53
[2018-08-04] MEDS ORDERED: D5NS 1,000 ML IV SCH (08:45)
[2018-08-04] MEDS ORDERED: Nitroglycerin Subl 0.4mg tab SL PRN (08:45)
--- NOTE | 2018-08-04 08:55 | NUR ---
TRANSFER TO FLOOR: Patient transferred to Med-Surg 3E room 315-2, per Dr. Yarbrough. Report given to MONIQUE Mcclellan. Belongings and medications given to receiving nurse. Family informed of transfer.
[2018-08-04] MEDS ORDERED: Miralax 17gm pkt ORAL PRN (09:15)
[2018-08-04] MEDS ORDERED: Morphine Sulfate 2mg/ml Inj(IV/IM USE ONLY) IVP PRN (09:15)
--- NOTE | 2018-08-04 09:30 | NUR ---
NURSE NOTES: Received report from MONIQUE Houser. pt transferred from telemetry floor. Patient alert and oriented x 4 with no signs of distress or other issues at this time. On room air, respirations even and unlabored. Left hand 22g IV site running D5NS @ 100 cc/hr, no s/s of infiltration noted. Right AC 18g saline lock patent and asymptomatic. call light within reach, bed in lowest position, side rales up x2. I will f/u as needed.
[2018-08-04 12:00] VITALS: BP 136/52
[2018-08-04 16:00] VITALS: BP 140/55
--- NOTE | 2018-08-04 17:10 | General Progress Note ---
Assessment/Plan Assessment/Plan: Assessment - Anemia - rectal bleed - gastritis Recommendations - monitor H&H - po as tolerated - d/c planning once H&H stable Subjective Allergies: Coded Allergies: No Known Allergies (Unverified , 08/03/18) Subjective Feels OK d/w family and RN at bedside H&H lower Objective Last 24 Hour Vital Signs Date Time Temp Pulse Resp B/P (MAP) Pulse Ox O2 Delivery O2 Flow Rate FiO2 08/04/18 16:00 Room Air 08/04/18 16:00 98.0 55 19 140/55 (83) 100 08/04/18 12:00 97.6 56 18 136/52 (80) 100 08/04/18 12:00 Room Air 08/04/18 08:35 61 129/53 08/04/18 08:00 98.6 61 21 129/53 (78) 97 08/04/18 08:00 54 08/04/18 08:00 Room Air 08/04/18 04:00 Room Air 08/04/18 04:00 55 08/04/18 04:00 97.6 70 20 130/60 (83) 96 08/04/18 00:00 Room Air 08/04/18 00:00 Room Air 08/04/18 00:00 98.4 60 20 119/86 (97) 96 08/03/18 23:41 60 08/03/18 21:46 64 18 99 08/03/18 21:44 67 18 99 08/03/18 20:00 Room Air 08/03/18 20:00 98.2 76 18 136/70 (92) 96 08/03/18 19:31 55 Intake and Output 08/03/18 08/04/18 19:00 07:00 Intake Total 425 ml 1091.6666 ml Balance 425 ml 1091.6666 ml IV Total 425 ml 1091.6666 ml # Voids 1 3 # Bowel Movements 3 Laboratory Tests 08/04/18 04:43: White Blood Count 5.9, Red Blood Count 2.85L, Hemoglobin 8.4L, Hematocrit 24.4L , Mean Corpuscular Volume 86, Mean Corpuscular Hemoglobin 29.5, Mean Corpuscular Hemoglobin Concent 34.4, Red Cell Distribution Width 14.2, Platelet Count 173, Mean Platelet Volume 6.5, Neutrophils (%) (Auto) 53.0, Lymphocytes (% ) (Auto) 36.6, Monocytes (%) (Auto) 5.1, Eosinophils (%) (Auto) 4.5H, Basophils (%) (Auto) 0.9, Prothrombin Time 11.4, Prothromb Time International Ratio 1.1, Activated Partial Thromboplast Time 25, Sodium Level 148H, Potassium Level 3.1L , Chloride Level 116H, Carbon Dioxide Level 25, Anion Gap 7, Blood Urea Nitrogen 11, Creatinine 0.8, Estimat Glomerular Filtration Rate , Glucose Level 123#H, Calcium Level 7.6L, Phosphorus Level 3.0, Magnesium Level 1.8, Total Bilirubin 0.5, Aspartate Amino Transf (AST/SGOT) 20, Alanine Aminotransferase ( ALT/SGPT) 16, Alkaline Phosphatase 23L, Total Protein 4.8L, Albumin 2.5L, Globulin 2.3, Albumin/Globulin Ratio 1.1, Amylase Level 40, Lipase 124 Height (Feet): 5 Height (Inches): 5.00 Weight (Pounds): 150 Objective WDWN WW NCAT supple CTA RRR abd soft No edema non focal Ari Connell MD Aug 04, 2018 17:10
[2018-08-04] MEDS ORDERED: NS 275ml ONE (17:36)
[2018-08-04] MEDS ORDERED: Tubing IV Blood Pump IV ONE (17:36)
--- NOTE | 2018-08-04 18:49 | Internal Med Progress Note ---
Subjective Date of Service: Aug 04, 2018 Physician Name Mic Araujo Attending Physician Jax Shahid MD Current Medications Medications (Trade) Dose Ordered Sig/Cynthia Route PRN Reason Start Time Stop Time Status Last Admin Dose Admin Acetaminophen (Tylenol) 650 mg Q4H PRN ORAL fever 08/04/18 09:15 09/02/18 09:14 Amlodipine Besylate (Norvasc) 5 mg DAILY ORAL 08/05/18 09:00 09/04/18 08:59 Dextrose (Dextrose 50%) 25 ml Q30M PRN IV Hypoglycemia 08/04/18 09:00 09/02/18 12:29 Dextrose (Dextrose 50%) 50 ml Q30M PRN IV Hypoglycemia 08/04/18 09:00 09/02/18 12:29 Diphenhydramine HCl (Benadryl) 25 mg Q6H PRN ORAL Itching/Pruritis 08/04/18 09:15 09/02/18 09:14 Insulin Aspart (NovoLOG) BEFORE MEALS AND HS SUBQ 08/04/18 11:30 09/02/18 16:29 Morphine Sulfate (Morphine Sulfate) 2 mg Q4H PRN IVP severe Pain (Pain Scale 7-10) 08/04/18 09:15 08/10/18 09:14 Nitroglycerin (Ntg) 0.4 mg Q5M X 3 DOSES PRN SL Prn Chest Pain 08/04/18 08:45 09/02/18 09:14 Ondansetron HCl (Zofran) 4 mg Q6H PRN IVP Nausea & Vomiting 08/04/18 09:15 09/02/18 09:14 Pantoprazole (Protonix) 40 mg EVERY 12 HOURS ORAL 08/04/18 21:00 09/02/18 20:59 Polyethylene Glycol (Miralax) 17 gm HSPRN PRN ORAL Constipation 08/04/18 09:15 09/02/18 09:14 Temazepam (Restoril) 15 mg HSPRN PRN ORAL Insomnia 08/04/18 09:15 08/10/18 09:14 Allergies: Coded Allergies: No Known Allergies (Unverified , 08/03/18) ROS Limited/Unobtainable: No Constitutional: Reports: no symptoms HEENT: Reports: no symptoms Cardiovascular: Reports: no symptoms Respiratory: Reports: no symptoms Gastrointestinal/Abdominal: Reports: rectal bleeding Genitourinary: Reports: no symptoms Neurologic/Psychiatric: Reports: no symptoms Subjective 83 YO F admitted with gastrointestinal hemorrhage. S/P endoscopy and colonoscopy 08/03/18. Cover for [facility] Matt-Dr Shahid. Objective Last Vital Signs Date Time Temp Pulse Resp B/P (MAP) Pulse Ox O2 Delivery O2 Flow Rate FiO2 08/04/18 16:00 Room Air 08/04/18 16:00 98.0 55 19 140/55 (83) 100 08/03/18 14:20 3 Laboratory Tests Test 08/04/18 04:43 White Blood Count 5.9 K/UL (4.8-10.8) Red Blood Count 2.85 M/UL (4.20-5.40) L Hemoglobin 8.4 G/DL (12.0-16.0) L Hematocrit 24.4 % (37.0-47.0) L Mean Corpuscular Volume 86 FL (80-99) Mean Corpuscular Hemoglobin 29.5 PG (27.0-31.0) Mean Corpuscular Hemoglobin Concent 34.4 G/DL (32.0-36.0) Red Cell Distribution Width 14.2 % (11.6-14.8) Platelet Count 173 K/UL (150-450) Mean Platelet Volume 6.5 FL (6.5-10.1) Neutrophils (%) (Auto) 53.0 % (45.0-75.0) Lymphocytes (%) (Auto) 36.6 % (20.0-45.0) Monocytes (%) (Auto) 5.1 % (1.0-10.0) Eosinophils (%) (Auto) 4.5 % (0.0-3.0) H Basophils (%) (Auto) 0.9 % (0.0-2.0) Prothrombin Time 11.4 SEC (9.30-11.50) Prothromb Time International Ratio 1.1 (0.9-1.1) Activated Partial Thromboplast Time 25 SEC (23-33) Sodium Level 148 MMOL/L (136-145) H Potassium Level 3.1 MMOL/L (3.5-5.1) L Chloride Level 116 MMOL/L (98-107) H Carbon Dioxide Level 25 MMOL/L (21-32) Anion Gap 7 mmol/L (5-15) Blood Urea Nitrogen 11 mg/dL (7-18) Creatinine 0.8 MG/DL (0.55-1.30) Estimat Glomerular Filtration Rate mL/min (>60) Glucose Level 123 MG/DL (74-106) #H Calcium Level 7.6 MG/DL (8.5-10.1) L Phosphorus Level 3.0 MG/DL (2.5-4.9) Magnesium Level 1.8 MG/DL (1.8-2.4) Total Bilirubin 0.5 MG/DL (0.2-1.0) Aspartate Amino Transf (AST/SGOT) 20 U/L (15-37) Alanine Aminotransferase (ALT/SGPT) 16 U/L (12-78) Alkaline Phosphatase 23 U/L (46-116) L Total Protein 4.8 G/DL (6.4-8.2) L Albumin 2.5 G/DL (3.4-5.0) L Globulin 2.3 g/dL Albumin/Globulin Ratio 1.1 (1.0-2.7) Amylase Level 40 U/L (25-115) Lipase 124 U/L (73-393) Intake and Output 08/03/18 08/04/18 19:00 07:00 Intake Total 425 ml 1091.6666 ml Balance 425 ml 1091.6666 ml IV Total 425 ml 1091.6666 ml # Voids 1 3 # Bowel Movements 3 Objective PHYSICAL EXAMINATION: VITAL SIGNS: On admission, temperature 98.1, pulse of 57, respirations 16, and blood pressure 79/31 initially, repeat one was 131/55. GENERAL: The patient is awake and responsive, in no acute distress. HEAD AND NECK: Pupils are reactive to light. Extraocular movements intact. NECK: Supple. No JVD. LUNGS: Good air entry. No wheezing or rales. HEART: Reveals S1 and S2. Regular rate and rhythm. No gallop. Possible systolic ejection murmur was noted. ABDOMEN: Soft, nondistended, and nontender. No rebound tenderness. Midline surgical scar from prior surgery was noted. EXTREMITIES: No cyanosis, clubbing, or edema. Varicose veins in bilateral lower extremities. NEUROLOGIC: Cranial nerves II through XII is grossly intact. Motor is 5/5 in all extremities. Gait is intact. RECTAL AND GENITOURINARY: Refused and deferred. Assessment/Plan Assessment/Plan ASSESSMENT: 1. Acute gastrointestinal bleed. 2. Severe anemia, most likely secondary to acute blood loss. 3. Syncope most likely secondary to acute blood loss. 4. Hypotension. 5. History of hypertension, presently hypotensive. 6. Right breast cancer status post mastectomy. 7. Diabetes type 2. PLAN: 1. Admit the patient to [facility]. 2. S/P transfusion 2 units of packed RBC on 08/03/18 3. GI consultation=Dr Edge 4. Code status, Full Code. 5. Keep the patient NPO except medications. 6. Discussed case with Dr. Yarbrough, Pulmonary Critical Care. 7. S/P endoscopy 08/03/18=gastritis and gastric erosions 8. S/P cononoscopy 08/03/18=incomplete prep Mic Araujo MD Aug 04, 2018 18:49
--- NOTE | 2018-08-04 19:42 | NUR ---
HAND-OFF: Report given to Obdulia AMAYA, pt in stable condition.
--- NOTE | 2018-08-04 19:43 | NUR ---
NURSE NOTES: Received report & pt from MONIQUE Mcclellan. Pt lying in bed, a&ox4, in room air. No s/s of acute distress & no c/o pain at this time. Skin intact. IV site x2 intact & S/L'd. Bed in lowest position, call light within reach. Will continue to monitor.
[2018-08-04 20:00] VITALS: BP 153/62
[2018-08-05 04:00] VITALS: BP 151/59
[2018-08-05] MEDS: NovoLOG Insulin Flexpen SUBQ SCH ×2 (05:50→11:30)
--- NOTE | 2018-08-05 07:20 | NUR ---
NURSE NOTES:BEDSIDE ROUNDS WITH RUI RN.PATIENT HAVING BREAKFAST,A/OX4,ROOM AIR,IV SITE INTACT,NO C/O PAIN.WILL CONTINUE CURRENT PLAN OF CARE.
--- NOTE | 2018-08-05 07:30 | NUR ---
HAND-OFF: Report given to MONIQUE Jiménez. Pt in stable condition. Rounds one. Called central supply to send SCD pump & sleeves.
[2018-08-05 08:00] VITALS: BP 150/59
--- NOTE | 2018-08-05 08:00 | NUR ---
NURSE NOTES:had large form brown stool,no active bleeding.refused for scd.ambulating ad brayan,gait steady.
[2018-08-05 08:45] LABS: BASOPHILS % (AUTO) 0.6 % (0.0-2.0); HEMATOCRIT 25.3 % (37.0-47.0); HEMOGLOBIN 8.7 G/DL (12.0-16.0); LYMPHOCYTES % (AUTO) 25.1 % (20.0-45.0); MEAN CORPUSCULAR VOLUME 86 FL (80-99); MONOCYTES % (AUTO) 5.3 % (1.0-10.0); PLATELET COUNT 188 K/UL (150-450); RED BLOOD COUNT 2.92 M/UL (4.20-5.40); RED CELL DISTRIBUTION WIDTH 14.2 % (11.6-14.8); WHITE BLOOD COUNT 7.6 K/UL (4.8-10.8)
[2018-08-05 09:12] LABS: ALANINE AMINOTRANSFERASE 19 U/L (12-78); ALBUMIN 2.7 G/DL (3.4-5.0); ALBUMIN/GLOBULIN RATIO 1.1 (1.0-2.7); ALKALINE PHOSPHATASE 26 U/L (46-116); ANION GAP 6 mmol/L (5-15); ASPARTATE AMINO TRANSFERASE 19 U/L (15-37); BILIRUBIN,TOTAL 0.4 MG/DL (0.2-1.0); BLOOD UREA NITROGEN 14 mg/dL (7-18); CALCIUM 7.9 MG/DL (8.5-10.1); CARBON DIOXIDE 26 MMOL/L (21-32); CHLORIDE 112 MMOL/L (98-107); CREATININE 0.9 MG/DL (0.55-1.30); PHOSPHORUS 2.6 MG/DL (2.5-4.9); POTASSIUM 3.4 MMOL/L (3.5-5.1); SODIUM 144 MMOL/L (136-145)
--- NOTE | 2018-08-05 11:55 | NUR ---
NURSE NOTES: Report received from Jessy RN, rounds made. Patient sitting at bedside. Alert, oriented x4, calm, pleasant, talkative. RW and LH heplocks intact. No distress on RA, denies pain or NV. No active bleeding noted. Reinforced call light for safety measures. Bed in lowest position, will continue to monitor.
--- NOTE | 2018-08-05 11:58 | NUR ---
HAND-OFF: Report given to CAROLINA AMAYA.RE:CONTINUITY OF CARE.PATIENT STABLE.
[2018-08-05 12:00] VITALS: BP 126/77
--- NOTE | 2018-08-05 12:05 | General Progress Note ---
Assessment/Plan Assessment/Plan: Assessment - Anemia - rectal bleed - resolved - gastritis Recommendations - monitor H&H - po as tolerated - d/c planning - outpatient f/u with Dr. Edge Subjective Allergies: Coded Allergies: No Known Allergies (Unverified , 08/03/18) Subjective Feels OK (+) BM - brown tolerating PO Objective Last 24 Hour Vital Signs Date Time Temp Pulse Resp B/P (MAP) Pulse Ox O2 Delivery O2 Flow Rate FiO2 08/05/18 08:33 65 150/59 08/05/18 08:00 98.4 65 19 150/59 (89) 97 08/05/18 07:20 Room Air 08/05/18 04:00 98.1 62 18 151/59 (89) 98 08/04/18 21:00 Room Air 08/04/18 20:00 98.5 66 17 153/62 (92) 99 08/04/18 16:00 Room Air 08/04/18 16:00 98.0 55 19 140/55 (83) 100 Intake and Output 08/04/18 08/05/18 19:00 07:00 Intake Total 490 ml 240 ml Balance 490 ml 240 ml Intake Oral 490 ml 240 ml # Voids 3 1 # Bowel Movements 1 Laboratory Tests 08/05/18 07:21: White Blood Count 7.6, Red Blood Count 2.92L, Hemoglobin 8.7L, Hematocrit 25.3L , Mean Corpuscular Volume 86, Mean Corpuscular Hemoglobin 29.7, Mean Corpuscular Hemoglobin Concent 34.4, Red Cell Distribution Width 14.2, Platelet Count 188, Mean Platelet Volume 6.6, Neutrophils (%) (Auto) 66.0, Lymphocytes (% ) (Auto) 25.1, Monocytes (%) (Auto) 5.3, Eosinophils (%) (Auto) 3.0, Basophils ( %) (Auto) 0.6, Prothrombin Time 10.5, Prothromb Time International Ratio 1.0, Activated Partial Thromboplast Time 24, Sodium Level 144, Potassium Level 3.4L, Chloride Level 112H, Carbon Dioxide Level 26, Anion Gap 6, Blood Urea Nitrogen 14, Creatinine 0.9, Estimat Glomerular Filtration Rate , Glucose Level 94, Calcium Level 7.9L, Phosphorus Level 2.6, Magnesium Level 1.7L, Total Bilirubin 0.4, Aspartate Amino Transf (AST/SGOT) 19, Alanine Aminotransferase (ALT/SGPT) 19, Alkaline Phosphatase 26L, Total Protein 5.2L, Albumin 2.7L, Globulin 2.5, Albumin/Globulin Ratio 1.1 Height (Feet): 5 Height (Inches): 5.00 Weight (Pounds): 150 Objective WDWN WW NCAT supple CTA RRR abd soft No edema non focal Ari Connell MD Aug 05, 2018 12:05
--- NOTE | 2018-08-05 12:15 | NUR ---
NURSE NOTES: Patient up ambulatory in halls, gait steady without DME. Accu check 111, refused Novolog coverage (2 units), denies s/s of hypo-hyperglycemia, tolerated lunch, fair. No NV. Encouraged hydration. Will continue to monitor.
[2018-08-05] MEDS ORDERED: PANTOPRAZOLE SO40 MG ORAL (14:45)
--- NOTE | 2018-08-05 14:46 | Pulmonology Progress Note ---
Assessment/Plan Problems: (1) Symptomatic anemia (2) Hemorrhagic shock (3) Breast cancer (4) Acute encephalopathy (5) LGI bleed Assessment/Plan all reviewed no more blood in stool Hem is up to 10 symptomatic treatment check h/h repeat colonoscopy if h/h drops advance diet as per GI dc home Subjective ROS Limited/Unobtainable: No Constitutional: Reports: no symptoms HEENT: Repors: no symptoms Allergies: Coded Allergies: No Known Allergies (Unverified , 08/03/18) Objective Last 24 Hour Vital Signs Date Time Temp Pulse Resp B/P (MAP) Pulse Ox O2 Delivery O2 Flow Rate FiO2 08/05/18 12:00 98.7 86 21 126/77 (93) 99 08/05/18 08:33 65 150/59 08/05/18 08:00 98.4 65 19 150/59 (89) 97 08/05/18 07:20 Room Air 08/05/18 04:00 98.1 62 18 151/59 (89) 98 08/04/18 21:00 Room Air 08/04/18 20:00 98.5 66 17 153/62 (92) 99 08/04/18 16:00 Room Air 08/04/18 16:00 98.0 55 19 140/55 (83) 100 Intake and Output 08/04/18 08/05/18 19:00 07:00 Intake Total 490 ml 240 ml Balance 490 ml 240 ml Intake Oral 490 ml 240 ml # Voids 3 1 # Bowel Movements 1 Respiratory/Chest: chest wall tender Breasts: no masses Cardiovascular: normal peripheral pulses Abdomen: normal bowel sounds, soft, non tender Genitourinary: normal external genitalia Extremities: no cyanosis Neurologic/Psychiatric: statue carver II-XII grossly normal Laboratory Tests 08/05/18 07:21: White Blood Count 7.6, Red Blood Count 2.92L, Hemoglobin 8.7L, Hematocrit 25.3L , Mean Corpuscular Volume 86, Mean Corpuscular Hemoglobin 29.7, Mean Corpuscular Hemoglobin Concent 34.4, Red Cell Distribution Width 14.2, Platelet Count 188, Mean Platelet Volume 6.6, Neutrophils (%) (Auto) 66.0, Lymphocytes (% ) (Auto) 25.1, Monocytes (%) (Auto) 5.3, Eosinophils (%) (Auto) 3.0, Basophils ( %) (Auto) 0.6, Prothrombin Time 10.5, Prothromb Time International Ratio 1.0, Activated Partial Thromboplast Time 24, Sodium Level 144, Potassium Level 3.4L, Chloride Level 112H, Carbon Dioxide Level 26, Anion Gap 6, Blood Urea Nitrogen 14, Creatinine 0.9, Estimat Glomerular Filtration Rate , Glucose Level 94, Calcium Level 7.9L, Phosphorus Level 2.6, Magnesium Level 1.7L, Total Bilirubin 0.4, Aspartate Amino Transf (AST/SGOT) 19, Alanine Aminotransferase (ALT/SGPT) 19, Alkaline Phosphatase 26L, Total Protein 5.2L, Albumin 2.7L, Globulin 2.5, Albumin/Globulin Ratio 1.1 Current Medications Medications (Trade) Dose Ordered Sig/Cynthia Route PRN Reason Start Time Stop Time Status Last Admin Dose Admin Acetaminophen (Tylenol) 650 mg Q4H PRN ORAL fever 08/04/18 09:15 09/02/18 09:14 Amlodipine Besylate (Norvasc) 5 mg DAILY ORAL 08/05/18 09:00 09/04/18 08:59 08/05/18 08:33 Dextrose (Dextrose 50%) 25 ml Q30M PRN IV Hypoglycemia 08/04/18 09:00 09/02/18 12:29 Dextrose (Dextrose 50%) 50 ml Q30M PRN IV Hypoglycemia 08/04/18 09:00 09/02/18 12:29 Diphenhydramine HCl (Benadryl) 25 mg Q6H PRN ORAL Itching/Pruritis 08/04/18 09:15 09/02/18 09:14 Insulin Aspart (NovoLOG) BEFORE MEALS AND HS SUBQ 08/04/18 11:30 09/02/18 16:29 Morphine Sulfate (Morphine Sulfate) 2 mg Q4H PRN IVP severe Pain (Pain Scale 7-10) 08/04/18 09:15 08/10/18 09:14 Nitroglycerin (Ntg) 0.4 mg Q5M X 3 DOSES PRN SL Prn Chest Pain 08/04/18 08:45 09/02/18 09:14 Ondansetron HCl (Zofran) 4 mg Q6H PRN IVP Nausea & Vomiting 08/04/18 09:15 09/02/18 09:14 Pantoprazole (Protonix) 40 mg EVERY 12 HOURS ORAL 08/04/18 21:00 09/02/18 20:59 08/05/18 08:33 Polyethylene Glycol (Miralax) 17 gm HSPRN PRN ORAL Constipation 08/04/18 09:15 09/02/18 09:14 Temazepam (Restoril) 15 mg HSPRN PRN ORAL Insomnia 08/04/18 09:15 08/10/18 09:14 Nitza Yarbrough MD Aug 05, 2018 14:46
--- NOTE | 2018-08-05 16:04 | Internal Med Progress Note ---
Subjective Date of Service: Aug 05, 2018 Physician Name Mic Araujo Attending Physician Jax Shahid MD Current Medications Medications (Trade) Dose Ordered Sig/Cynthia Route PRN Reason Start Time Stop Time Status Last Admin Dose Admin Acetaminophen (Tylenol) 650 mg Q4H PRN ORAL fever 08/04/18 09:15 09/02/18 09:14 Amlodipine Besylate (Norvasc) 5 mg DAILY ORAL 08/05/18 09:00 09/04/18 08:59 08/05/18 08:33 Dextrose (Dextrose 50%) 25 ml Q30M PRN IV Hypoglycemia 08/04/18 09:00 09/02/18 12:29 Dextrose (Dextrose 50%) 50 ml Q30M PRN IV Hypoglycemia 08/04/18 09:00 09/02/18 12:29 Diphenhydramine HCl (Benadryl) 25 mg Q6H PRN ORAL Itching/Pruritis 08/04/18 09:15 09/02/18 09:14 Insulin Aspart (NovoLOG) BEFORE MEALS AND HS SUBQ 08/04/18 11:30 09/02/18 16:29 Morphine Sulfate (Morphine Sulfate) 2 mg Q4H PRN IVP severe Pain (Pain Scale 7-10) 08/04/18 09:15 08/10/18 09:14 Nitroglycerin (Ntg) 0.4 mg Q5M X 3 DOSES PRN SL Prn Chest Pain 08/04/18 08:45 09/02/18 09:14 Ondansetron HCl (Zofran) 4 mg Q6H PRN IVP Nausea & Vomiting 08/04/18 09:15 09/02/18 09:14 Pantoprazole (Protonix) 40 mg EVERY 12 HOURS ORAL 08/04/18 21:00 09/02/18 20:59 08/05/18 08:33 Polyethylene Glycol (Miralax) 17 gm HSPRN PRN ORAL Constipation 08/04/18 09:15 09/02/18 09:14 Temazepam (Restoril) 15 mg HSPRN PRN ORAL Insomnia 08/04/18 09:15 08/10/18 09:14 Allergies: Coded Allergies: No Known Allergies (Unverified , 08/03/18) ROS Limited/Unobtainable: No Constitutional: Reports: no symptoms HEENT: Reports: no symptoms Cardiovascular: Reports: no symptoms Respiratory: Reports: no symptoms Gastrointestinal/Abdominal: Reports: no symptoms Genitourinary: Reports: no symptoms Neurologic/Psychiatric: Reports: no symptoms Subjective 83 YO F admitted with gastrointestinal hemorrhage. S/P endoscopy and colonoscopy 08/03/18. Cover for Julia Shahid. Objective Last Vital Signs Date Time Temp Pulse Resp B/P (MAP) Pulse Ox O2 Delivery O2 Flow Rate FiO2 08/05/18 12:00 98.7 86 21 126/77 (93) 99 08/05/18 07:20 Room Air 08/03/18 14:20 3 Laboratory Tests Test 08/05/18 07:21 White Blood Count 7.6 K/UL (4.8-10.8) Red Blood Count 2.92 M/UL (4.20-5.40) L Hemoglobin 8.7 G/DL (12.0-16.0) L Hematocrit 25.3 % (37.0-47.0) L Mean Corpuscular Volume 86 FL (80-99) Mean Corpuscular Hemoglobin 29.7 PG (27.0-31.0) Mean Corpuscular Hemoglobin Concent 34.4 G/DL (32.0-36.0) Red Cell Distribution Width 14.2 % (11.6-14.8) Platelet Count 188 K/UL (150-450) Mean Platelet Volume 6.6 FL (6.5-10.1) Neutrophils (%) (Auto) 66.0 % (45.0-75.0) Lymphocytes (%) (Auto) 25.1 % (20.0-45.0) Monocytes (%) (Auto) 5.3 % (1.0-10.0) Eosinophils (%) (Auto) 3.0 % (0.0-3.0) Basophils (%) (Auto) 0.6 % (0.0-2.0) Prothrombin Time 10.5 SEC (9.30-11.50) Prothromb Time International Ratio 1.0 (0.9-1.1) Activated Partial Thromboplast Time 24 SEC (23-33) Sodium Level 144 MMOL/L (136-145) Potassium Level 3.4 MMOL/L (3.5-5.1) L Chloride Level 112 MMOL/L (98-107) H Carbon Dioxide Level 26 MMOL/L (21-32) Anion Gap 6 mmol/L (5-15) Blood Urea Nitrogen 14 mg/dL (7-18) Creatinine 0.9 MG/DL (0.55-1.30) Estimat Glomerular Filtration Rate mL/min (>60) Glucose Level 94 MG/DL (74-106) Calcium Level 7.9 MG/DL (8.5-10.1) L Phosphorus Level 2.6 MG/DL (2.5-4.9) Magnesium Level 1.7 MG/DL (1.8-2.4) L Total Bilirubin 0.4 MG/DL (0.2-1.0) Aspartate Amino Transf (AST/SGOT) 19 U/L (15-37) Alanine Aminotransferase (ALT/SGPT) 19 U/L (12-78) Alkaline Phosphatase 26 U/L (46-116) L Total Protein 5.2 G/DL (6.4-8.2) L Albumin 2.7 G/DL (3.4-5.0) L Globulin 2.5 g/dL Albumin/Globulin Ratio 1.1 (1.0-2.7) Intake and Output 08/04/18 08/05/18 19:00 07:00 Intake Total 490 ml 240 ml Balance 490 ml 240 ml Intake Oral 490 ml 240 ml # Voids 3 1 # Bowel Movements 1 Objective PHYSICAL EXAMINATION: VITAL SIGNS: On admission, temperature 98.1, pulse of 57, respirations 16, and blood pressure 79/31 initially, repeat one was 131/55. GENERAL: The patient is awake and responsive, in no acute distress. HEAD AND NECK: Pupils are reactive to light. Extraocular movements intact. NECK: Supple. No JVD. LUNGS: Good air entry. No wheezing or rales. HEART: Reveals S1 and S2. Regular rate and rhythm. No gallop. Possible systolic ejection murmur was noted. ABDOMEN: Soft, nondistended, and nontender. No rebound tenderness. Midline surgical scar from prior surgery was noted. EXTREMITIES: No cyanosis, clubbing, or edema. Varicose veins in bilateral lower extremities. NEUROLOGIC: Cranial nerves II through XII is grossly intact. Motor is 5/5 in all extremities. Gait is intact. RECTAL AND GENITOURINARY: Refused and deferred. Assessment/Plan Assessment/Plan ASSESSMENT: 1. Acute gastrointestinal bleed. 2. Severe anemia, secondary to acute blood loss. 3. Syncope most likely secondary to acute blood loss. 4. Hypotension. 5. History of hypertension, presently hypotensive. 6. Right breast cancer status post mastectomy. 7. Diabetes type 2. PLAN: 1. Admit the patient to [facility]. 2. S/P transfusion 2 units of packed RBC on 08/03/18 3. GI consultation=Dr Edge 4. Code status, Full Code. 5. Keep the patient NPO except medications. 6. Discussed case with Dr. Yarbrough, Pulmonary Critical Care. 7. S/P endoscopy 08/03/18=gastritis and gastric erosions 8. S/P cononoscopy 08/03/18=incomplete prep Mic Araujo MD Aug 05, 2018 16:04
[2018-08-05 16:15] VITALS: BP 153/56
--- NOTE | 2018-08-05 16:30 | NUR ---
NURSE NOTES: Discharge instructions and prescription x1 reviewed with patient, verbalized understanding. All belongings, discharge instructions and prescription x1 sent with patient. IV heplocks x2 discontinued, no active bleeding. Patient ambulated down to [facility] with RN, in stable condition. Patient greens picker by family friend, Ken[place]. Discharged home at 1630.
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
--- NOTE | 2018-08-07 11:04 | Diagnostic Imaging Report ---
APPROVED REPORT CPT Code: 35573 Present Symptoms Comments: Screening BILATERAL: Imaging reveals a patent deep venous system bilaterally. There is no evidence of thrombus within the common femoral, superficial femoral, popliteal or tibial segments. The greater saphenous veins are within normal limits. Doppler indicates normal spontaneous flow within these segments.
== END 2018-08-05 16:35 | disposition home or self-care (01) | DRG 377 ==
LOC: EDBD 00:29 → EMR 00:42 → EDBEDREQ 00:51 → 2E 01:21 → EDBD 01:21 → EDBEDREQ 01:27 → EDBEDREQSVC 01:27 → EDBEDREQ 01:29 → 2W 04:14 → 3E 08-04 08:45
PROC: 30233N1 Transfusion of Nonautologous Red Blood Cells into Peripheral Vein, Percutaneous Approach (ICD-10-PCS; principal; 2018-08-03 13:22)
PROC: 0DB68ZZ Excision of Stomach, Via Natural or Artificial Opening Endoscopic (ICD-10-PCS; principal; 2018-08-03 13:22)
PROC: 0DJD8ZZ Inspection of Lower Intestinal Tract, Via Natural or Artificial Opening Endoscopic (ICD-10-PCS; principal; 2018-08-03 13:22)
PROC: 0DB78ZX Excision of Stomach, Pylorus, Via Natural or Artificial Opening Endoscopic, Diagnostic (ICD-10-PCS; principal; 2018-08-03 13:22)
DX: K57.31 Diverticulosis of large intestine without perforation or abscess with bleeding (principal); R57.8 Other shock; D62 Acute posthemorrhagic anemia; G93.40 Encephalopathy, unspecified; Z85.3 Personal history of malignant neoplasm of breast; Z90.11 Acquired absence of right breast and nipple; E11.9 Type 2 diabetes mellitus without complications; I10 Essential (primary) hypertension; K57.90 Diverticulosis of intestine, part unspecified, without perforation or abscess without bleeding; R55 Syncope and collapse; K29.40 Chronic atrophic gastritis without bleeding; K25.9 Gastric ulcer, unspecified as acute or chronic, without hemorrhage or perforation; K31.7 Polyp of stomach and duodenum; K64.8 Other hemorrhoids
CPT/HCPCS: 36415; 80053; 82150; 82270; 82962; 83036; 83690; 83735; 84100; 84484; 85025; 85610; 85730; 86850; 86900; 86901; 86920; 93970; 94003; 94150; 99285; J1815; J8499